=== PATIENT | male | born 1990 | race African-American/Black ===

== ENCOUNTER 2017-04-02 20:56 | Emergency (ER) | payer MEDICAID ==
[~2017-04-02] VITALS: Ht 180.3 cm; Wt 79.4 kg
[~2017-04-02 20:56] MED LIST: IOHEXOL-300 100 ML BOTTLE ONE; SODIUM CHLORIDE 0.9% 10ML VIAL ONE
[2017-04-02] MEDS ORDERED: MORPHINE SULFATE 4 MG/ML CPJ (NOT FOR IM USE) IV STA (22:07)
[2017-04-02 23:23] LABS: CHLORIDE 105 mEq/L (98-107)
[2017-04-02 23:29] LABS: CARBON DIOXIDE 28 mEq/L (21-32)
[2017-04-02 23:32] LABS: EOSINOPHILS % 0.7 % (0.0-5.0); HEMATOCRIT. 41.9 % (42.0-52.0); LYMPHOCYTES % 24.5 % (20.0-50.0); MEAN CORPUSCULAR HEMOGLOBIN 29.4 pg (28.0-32.0); MEAN PLATELET VOLUME 7.9 fl (7.4-10.4); MONOCYTES % 7.7 % (2.0-8.0); NEUTROPHILS % 66.1 % (40.0-76.0); PLATELET 283 x1000/uL (130-400); RED BLOOD CELL COUNT 4.76 mill/uL (4.7-6.1); RED CELL DISTRIBUTION WIDTH 13.7 % (11.6-14.6)
[2017-04-03 03:27] LABS: CLARITY URINE CLEAR (CLEAR); COLOR URINE YELLOW (YELLOW); GLUCOSE URINE NEGATIVE (NEGATIVE); KETONES URINE 1+ (NEGATIVE); LEUKOCYTE ESTERASE URINE NEGATIVE (NEGATIVE); NITRITE URINE NEGATIVE (NEGATIVE); OCCULT BLOOD URINE NEGATIVE (NEGATIVE); PH URINE 7.5 (4.5-8.0); PROTEIN URINE TRACE (NEGATIVE)
[2017-04-03 03:42] LABS: *AMPHETAMINES SCREEN URINE PRESUMTIVE POSITIVE (NEGATIVE); *BARBITURATES SCREEN URINE NEGATIVE (NEGATIVE); *BENZODIAZEPINES SCREEN URINE NEGATIVE (NEGATIVE); *COCAINE SCREEN URINE NEGATIVE (NEGATIVE); CANNABINOID URINE SCREEN PRESUMTIVE POSITIVE (NEGATIVE); METHADONE URINE SCREEN NEGATIVE (NEGATIVE); OPIATES URINE SCREEN PRESUMTIVE POSITIVE (NEGATIVE); PHENCYCLIDINE URINE SCREEN NEGATIVE (NEGATIVE)
[2017-04-03] MEDS ORDERED: KETOROLAC 30MG/ML VIAL IV NR (03:58)
[2017-04-03] MEDS ORDERED: BACITRACIN ZINC OINT UDPKT TOP ONE (04:00)
[2017-04-03 06:30] VITALS: BP 101/60
== END 2017-04-03 06:40 | disposition home or self-care (01) ==
LOC: ER 21:16
DX: S80.12XA Contusion of left lower leg, initial encounter (principal); S39.012A Strain of muscle, fascia and tendon of lower back, initial encounter; V23.4XXA Motorcycle driver injured in collision with car, pick-up truck or van in traffic accident, initial encounter; Y93.89 Activity, other specified; Y92.410 Unspecified street and highway as the place of occurrence of the external cause; R03.0 Elevated blood-pressure reading, without diagnosis of hypertension; F17.290 Nicotine dependence, other tobacco product, uncomplicated; F12.90 Cannabis use, unspecified, uncomplicated
CPT/HCPCS: 29505; 36415; 70450; 72125; 73560; 73590; 74177; 80053; 80305; 81001; 85025; 96374; 96375; 99285; A4216; J1885; J2270; Q9967; Z7610; 73562

== ENCOUNTER 2020-12-29 13:53 | Emergency (ER) | payer MEDICAID ==
[~2020-12-29] VITALS: Ht 182.9 cm; Wt 93.0 kg
[2020-12-29 13:54] VITALS: BP 112/62
[2020-12-29] MEDS ORDERED: ACET-2708 MT (14:52)
== END 2020-12-29 15:22 ==
LOC: ER 14:23
DX: S09.90XA Unspecified injury of head, initial encounter (principal); F12.10 Cannabis abuse, uncomplicated; I10 Essential (primary) hypertension; X58.XXXA Exposure to other specified factors, initial encounter; Y93.89 Activity, other specified; Y92.89 Other specified places as the place of occurrence of the external cause; Y99.8 Other external cause status
CPT/HCPCS: 99283